=== PATIENT | male | born 2005 | race Two or more races ===

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

== ENCOUNTER 2024-05-20 23:37 | Emergency (ER) | payer MEDICAID ==
[~2024-05-20] VITALS: Ht 175.3 cm; Wt 107.7 kg
[2024-05-21 00:50] VITALS: BP 140/85; PULSE 84; RESP 20; TEMP 99.3; O2SAT 97
--- NOTE | 2024-05-21 00:51 | ED.PDOC ---
GI ASSESSMENT HPI Comments PRESENTS TO ED FOR ANXIETY. REPORTS THAT HE WAS SJUST PLAYING VIDEO GAMES THEN STARTED HAVING A COUGH AND FELT SOB. DENIES FEVER. DENIES SICK CONTACTS. BREATHING EVEN AND NONLABORED. RR 21, SPO2 97% ON ROOM AIR. LUNGS CLEAR. REPORTS HISTORY OF PANIC ATTACKS. Chief Complaint: Anxiety Time Seen by MD: 23:56 Primary Care Provider: Anatoly Cowan Notes: Nurses Notes, Medications, Allergies Allergies: Coded Allergies: NO KNOWN ALLERGIES (Unverified , 04/05/13) Home Meds Active Scripts Hydrocodone-Acetaminophen (Hydrocodone Bitartrate/AC 10-325 mg) 1 Tab Tab, 1 TAB PO Q6HPRN PRN, #20 TAB Prov:SANTANA RIVERA DO 07/19/22 Information Source: Patient, Relative (Mother) Mode of Arrival: Ambulatory Past Medical History PAST MEDICAL HISTORY: Denies Surgical History: Denies all surgeries Family History Family History: Reviewed,noncontributory to illness Social History Smoker: Non-Smoker Alcohol: Denies ETOH Use Drugs: Denies Drug Use Lives In: Home Constitutional: denies: chills, diaphoresis, fatigue, fever, malaise, sweats, weakness, others EENTM: denies: blurred vision, double vision, ear bleeding, ear discharge, ear drainage, ear pain, ear ringing, eye pain, eye redness, hearing loss, mouth pain, mouth swelling, nasal discharge, nose bleeding, nose congestion, nose pain, photophobia, tearing, throat pain, throat swelling, voice changes, others Respiratory: denies: cough, hemoptysis, orthopnea, SOB at rest, shortness of breath, SOB with excertion, stridor, wheezing, others Cardiovascular: reports: chest pain; denies: dizzy spells, diaphoresis, Dyspnea on exertion, edema, irregular heart beat, left arm pain, lightheadedness, palpitations, PND, syncope, others Gastrointestinal: reports: constipated; denies: abdomen distended, abdominal pain, blood streaked bowels, diarrhea, dysphagia, difficulty swallowing, hematemesis, melena, nausea, poor appetite, poor fluid intake, rectal bleeding, rectal pain, vomiting, others Genitourinary: denies: burning, dysuria, flank pain, frequency, hematuria, incontinence, penile discharge, penile sore, pain, testicle pain, testicle swelling, urgency, others Neurological: denies: dizziness, fainting, headache, left sided numbness, left sided weakness, numbness, paresthesia, pre-existing deficit, right sided numbness, right sided weakness, seizure, speech problems, tingling, tremors, weakness, others Musculoskeletal: denies: back pain, gout, joint pain, joint swelling, muscle pain, muscle stiffness, neck pain, others Integumetry: denies: bruises, change in color, change in hair/nails, dryness, laceration, lesions, lumps, rash, wounds, others Allergic/Immunocompromised: denies: Difficulty Healing, Frequent Infections, Hives, Itching, others Hematologic/Lymphatic: denies: anemia, blood clots, easy bleeding, easy bruising, swollen glands, others Endocrine: denies: excessive hunger, excessive sweating, excessive thirst, excessive urination, flushing, intolerance to cold, intolerance to heat, unexplained weight gain, unexplained weight loss, others Psychiatric: denies: anxiety, bipolar disorder, depression, hopeless, panic disorder, schizophrenia, sleepless, suicidal, others Physical Exam General Appearance: No Apparent Distress, Normal HEENT: Normal ENT Inspection, Pharynx Normal, TMs Normal Neck: Full Range of Motion, Non-Tender Respiratory: Chest Non-Tender, Lungs Clear, No Accessory Muscle Use, No Respiratory Distress, Normal Breath Sounds Cardiovascular: No Edema, No JVD, No Murmur, No Gallop, Normal Peripheral Pulses, Regular Rate/Rhythm Breast Exam: Deferred Gastrointestinal: No Organomegaly, Non Tender, No Pulsatile Mass, Normal Bowel Sounds, Soft Genitalia: Deferred Pelvic: Deferred Rectal: Deferred Extremities: Normal capillary refill, Normal inspection, Normal range of motion, Non-tender, No pedal edema Musculoskeletal : Apperance: Normal Neurologic: Alert, systems mgr II-XII nml as Tested, No Motor Deficits, Normal Affect, Normal Mood, No Sensory Deficits Cerebellar Function: Normal Reflexes: Normal Skin: Dry, Normal Color, Warm Lymphatic: No Adenopathy Was a procedure done? Was a procedure done?: No GI differential Dx Differential Diagnosis: Gastroenteritis, Hernia X-Ray, Labs, Meds, VS Vital Signs Date Time Temp Pulse Resp B/P (MAP) Pulse Ox O2 Delivery O2 Flow Rate FiO2 05/21/24 00:50 99.3 84 20 140/85 (103) 97 99.3 05/21/24 00:32 83 05/20/24 23:46 21 97 Room Air* 0 21 05/20/24 23:46 99.3 96 21 151/94 (113) 97 X-Ray, Labs, Meds, VS Comment EKG WITHOUT ECTOPY WITHIN NORMAL LIMITS. LIKELY SECONDARY TO HIS ANXIETY, CONSTIPATION, AND ACID REFLUX. MOM STATES PATIENT FOLLOW UP WITH HIS PRIMARY CARE PROVIDER YESTERDAY AND WAS PRESCRIBED MEDICATION FOR CONSTIPATION MIRALAX HAS NOT STARTED. ADVISED TO FOLLOW UP WITH HIS PCP FOR CONTINUED ANXIETY AND ACID REFLUX ADVISED ON PROPER DIET AND FLUIDS. ER RETURN PRECAUTIONS GIVEN PATIENT INDICATED UNDERSTANDING AGREES WITH DISCHARGE PLAN OF CARE. Time of 1ST Reevaluation: 00:54 Reevaluation 1ST: Improved Patient Education/Counseling: Diagnosis, Treatment, Prognosis, Need For Follow Up Family Education/Counseling: Diagnosis, Treatment, Prognosis, Need For Follow Up Departure 1 Departure Time of Disposition: 00:54 Impression: Primary Impression: Anxiety Additional Impressions: GERD (gastroesophageal reflux disease) Qualified Codes: K21.9 - Gastro-esophageal reflux disease without esophagitis Constipation Qualified Codes: K59.00 - Constipation, unspecified Disposition: 01 HOME / SELF CARE / HOMELESS Condition: Stable Discharged With: Relative (Mother) Critical Care Note Critical Care Time?: No Stability Stability form required: HEBER Anne May 21, 2024 00:51
--- NOTE | 2024-05-22 07:06 | ECG ---
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
== END 2024-05-21 01:13 | disposition home or self-care (01) ==
LOC: ER 23:37
DX: F41.9 Anxiety disorder, unspecified (principal); K21.9 Gastro-esophageal reflux disease without esophagitis; K59.00 Constipation, unspecified
CPT/HCPCS: 93005

== ENCOUNTER 2024-06-04 21:36 | Emergency (ER) | payer MEDICAID ==
[~2024-06-04] VITALS: Ht 180.3 cm; Wt 105.2 kg
[2024-06-04 21:43] VITALS: BP 148/88; RESP 16; O2SAT 94
--- NOTE | 2024-06-04 22:56 | DVH ---
CHEST RADIOGRAPH Indication: cp Technique: Single frontal view of the chest was obtained Comparison: None FINDINGS: Lines and Tubes: None Lungs: Clear Pleura: No effusion. No pneumothorax. Cardiomediastinal contours: Unremarkable Bones: Unremarkable IMPRESSION: Clear lungs.
--- NOTE | 2024-06-04 23:04 | ED.PDOC ---
History of Present Illness HPI Comments 18 y/o M presents with mother and sibling for c/o non-radiating, sternal chest pain and nonproductive cough, intermittently, for 1x week, today. He comments on pain being sharp in quality. Patient reports no recent stressors, sick contact, strenuous activities, significant medical or surgical history, or other relevant or pertinent information. He denies having any palpitations, shortness of breath, nausea, vomiting, fever, chills, or other associated symptoms or modifiers at this time. Chief Complaint: Dizziness Time Seen by MD: 22:30 Primary Care Provider: Anatoly Cowan Notes: Nurses Notes, Medications, Allergies Allergies: Coded Allergies: NO KNOWN ALLERGIES (Unverified , 04/05/13) Home Meds Active Scripts Hydrocodone-Acetaminophen (Hydrocodone Bitartrate/AC 10-325 mg) 1 Tab Tab, 1 TAB PO Q6HPRN PRN, #20 TAB Prov:SANTANA RIVERA DO 07/19/22 Information Source: Patient, Relative Mode of Arrival: Ambulatory Severity: Moderate Timing: Weeks Duration: Since onset Prehospital treatment: None Past Medical History PAST MEDICAL HISTORY: Denies Surgical History: Denies all surgeries Family History Family History: Reviewed,noncontributory to illness Social History Smoker: Non-Smoker Alcohol: Denies ETOH Use Drugs: Denies Drug Use Lives In: Home Respiratory: reports: cough Cardiovascular: reports: chest pain All Other Systems: Reviewed and Negative (negative unless otherwise stated above or in HPI) Physical Exam General Appearance: No Apparent Distress, Obese HEENT: Normal ENT Inspection, Pharynx Normal, TMs Normal Neck: Full Range of Motion, Non-Tender, Normal, Normal Inspection Respiratory: Chest Non-Tender, Lungs Clear, No Accessory Muscle Use, No Respiratory Distress, Normal Breath Sounds Cardiovascular: No Edema, No JVD, No Murmur, No Gallop, Normal Peripheral Pulses, Regular Rate/Rhythm Breast Exam: Deferred Gastrointestinal: No Organomegaly, Non Tender, No Pulsatile Mass, Normal Bowel Sounds, Soft Genitalia: Deferred Pelvic: Deferred Rectal: Deferred Extremities: No calf tenderness, Normal capillary refill, Normal inspection, Normal range of motion, Non-tender, No pedal edema Musculoskeletal : Apperance: Normal Neurologic: Alert, eyelet operator II-XII nml as Tested, No Motor Deficits, Normal Affect, Normal Mood, No Sensory Deficits Cerebellar Function: Normal Reflexes: Normal Skin: Dry, Normal Color, Warm Lymphatic: No Adenopathy Was a procedure done? Was a procedure done?: No EKG EKG : Pulse Rate (adult): 71 [place]: Normal Cardiac Rhythm: NSR Block: None Hypertrophy: None ST: Normal Differential Dx Considerations may include: anxiety, panic attacks, NE, ACS, angina, musculoskeletal pain, costochondritis, pericarditis, gastritis X-Ray, Labs, Meds, VS Vital Signs Date Time Temp Pulse Resp B/P (MAP) Pulse Ox O2 Delivery O2 Flow Rate FiO2 06/05/24 00:48 71 06/04/24 21:43 97.8 82 16 148/88 (108) 94 Lab Test 06/04/24 21:46 Range/Units POC Glucose 119 H 70-106 mg/dl Time of 1ST Reevaluation: 01:25 Reevaluation 1ST: Improved Patient Education/Counseling: Diagnosis, Treatment, Prognosis, Need For Follow Up Family Education/Counseling: Diagnosis, Treatment, Prognosis, Need For Follow Up Additional Information I reviewed the following notes from patient's past medical encounters: ED physician note on 05/20/24 The following tests were ordered, and results were reviewed by me: EKG, CXR Additional Information was gathered from interviewing the following independent historians: mother I reviewed and agreed with the following test results read by other providers: CXR I discussed treatment and results with medical personnel: mother Departure 1 Departure Time of Disposition: 01:26 Impression: Primary Impression: Chest pain Qualified Codes: R07.82 - Intercostal pain Disposition: HOME / SELF CARE / HOMELESS Condition: Good Additional Instructions: follow up with your doctor as scheduled this week Discharged With: Relative (Mother) Critical Care Note Critical Care Time?: No Stability Stability form required: No Heart Score Heart Score: Heart Score Response (Comments) Value History Slightly Suspicious 0 EKG Normal 0 Age <45 0 Risk Factors No known risk factors 0 Troponin N/A 0 Total 0 I personally scribed for KIRT DE LA TORRE MD ([email or web address]) on 06/04/24 at 23:04. Electronically submitted by Peter Howard ([email or web address]). KIRT DE LA TORRE MD Jun 04, 2024 23:04
[2024-06-05 01:26] VITALS: PULSE 71
--- NOTE | 2024-06-05 10:48 | ECG ---
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
== END 2024-06-05 01:24 | disposition home or self-care (01) ==
LOC: ER 21:36
DX: R07.89 Other chest pain (principal); Z79.899 Other long term (current) drug therapy
CPT/HCPCS: 71045; 82947; 82962; 93005